=== PATIENT | male | born 1960 | race Caucasian/White ===

== ENCOUNTER → 2016-10-26 | Outpatient (CLI) | payer BC | LOC: KOH-I 11:10 | DX: M25.561 Pain in right knee (principal); M25.861 Other specified joint disorders, right knee | CPT/HCPCS: 73564 ==

== ENCOUNTER → 2016-11-13 | Outpatient (CLI) | payer BC | LOC: KOH-I 09:30 | DX: M25.561 Pain in right knee (principal); S83.241A Other tear of medial meniscus, current injury, right knee, initial encounter; S83.281A Other tear of lateral meniscus, current injury, right knee, initial encounter; M17.11 Unilateral primary osteoarthritis, right knee; M94.261 Chondromalacia, right knee; M25.461 Effusion, right knee; M23.41 Loose body in knee, right knee | CPT/HCPCS: 73721 ==

== ENCOUNTER → 2021-07-25 | Outpatient (CLI) | payer BC | LOC: KOH-I 14:36 | DX: M79.642 Pain in left hand (principal) | CPT/HCPCS: 73130 ==